=== PATIENT | female | born 1995 | race African-American/Black ===

== ENCOUNTER 2017-11-12 11:55 | Emergency (ER) | payer OTHER ==
[~2017-11-12] VITALS: Ht 160 cm; Wt 68.0 kg
[2017-11-12] MEDS ORDERED: IBUPROFEN 600600 M1 PO (13:39)
[2017-11-12] MEDS ORDERED: TIZANIDINE HCL4 MG PO (13:39)
[2017-11-12 14:02] VITALS: BP 139/81
== END 2017-11-12 13:51 | disposition home or self-care (01) ==
LOC: ER 11:55
DX: S16.1XXA Strain of muscle, fascia and tendon at neck level, initial encounter (principal); S10.93XA Contusion of unspecified part of neck, initial encounter; Z88.1 Allergy status to other antibiotic agents; V89.2XXA Person injured in unspecified motor-vehicle accident, traffic, initial encounter; Y93.89 Activity, other specified; Y92.89 Other specified places as the place of occurrence of the external cause; Y99.8 Other external cause status